=== PATIENT | male | born 2005 | race African-American/Black ===

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

== ENCOUNTER 2024-01-03 17:33 | Emergency (ER) | payer OTHER | END 2024-01-03 18:35 | disposition home or self-care (01) | LOC: CSHERS 17:33 | DX: G89.29 Other chronic pain (principal); M25.561 Pain in right knee; F17.290 Nicotine dependence, other tobacco product, uncomplicated | CPT/HCPCS: 99283 ==